=== PATIENT | female | born 1955 | race Caucasian/White ===

== ENCOUNTER 2021-01-12 21:53 | Emergency (ER) | payer OTHER, SELFPAY ==
[2021-01-12 22:09] VITALS: BP 194/84; PULSE 85; RESP 16; TEMP 37.2; O2SAT 96; BMI 23.0
--- NOTE | 2021-01-12 23:21 | DI.CT.S_ITS ---
PROCEDURE: CT FACIAL BONES WO CON INDICATIONS: fall with head and face injury TECHNIQUE: Noncontrast 2.5 mm thick axial images acquired from the mandible through the frontal sinuses, with coronal and sagittal reformatting. For radiation dose reduction, the following was used: automated exposure control, adjustment of mA and/or kV according to patient size. COMPARISON: None. FINDINGS: Image quality: Excellent. Bones and teeth: Orbital mcmanus are intact. Sinus mcmanus show no fracture or deformity. Nasal bones and septum are intact. Visualized portions of the mandible demonstrate no fractures or subluxation. Zygomatic arches are intact. Pterygoid plates are intact. Visualized portions of the skull base and auditory canals are intact. Osteoarthritic degenerative changes noted in the right temporomandibular joint. Degenerative disc disease and facet arthropathy noted in the visualized cervical spine. Sinuses: Paranasal sinuses are aerated, without fluid levels, mucosal thickening, or mucoceles. Mastoid air cells are aerated. Soft tissues: Soft tissue swelling noted in the right lower face. Subcutaneous hematoma noted in the right malar eminence. No enlarged lymph nodes. No soft tissue lacerations or debris. Vascular: Visualized vascular structures appear normal in the absence of contrast. Bony vascular foramina and canals are intact. IMPRESSION: No fracture. Dictated by: Flavia Rubio MD, PhD on 01/13/2021 at 7:35 Approved by: Flavia Rubio MD, PhD on 01/13/2021 at 7:39
--- NOTE | 2021-01-12 23:21 | DI.CT.S_ITS ---
PROCEDURE: CT HEAD/BRAIN WO CON INDICATIONS: fall with memory loss and injury TECHNIQUE: Noncontrast 4.5 mm thick angled axial sections acquired from the foramen magnum to the vertex, with coronal and sagittal reformats. For radiation dose reduction, the following was used: automated exposure control, adjustment of mA and/or kV according to patient size. COMPARISON: None. FINDINGS: Image quality: Excellent. CSF spaces: Basal cisterns are patent. No extra-axial fluid collections. Ventricles are normal in size and shape. Brain: No midline shift. No intracranial masses or hemorrhage. Girard-white matter interface is normal. Skull and face: Calvarium and visualized facial bones are intact, without suspicious lesions. Sinuses: Visualized sinuses and mastoids are clear. IMPRESSION: No acute intracranial disease process. Dictated by: Flavia Rubio MD, PhD on 01/13/2021 at 7:13 Approved by: Flavia Rubio MD, PhD on 01/13/2021 at 7:14
--- NOTE | 2021-01-12 23:28 | DI.RAD.S_ITS ---
PROCEDURE: XR HAND LT MIN 3V INDICATIONS: fall with hand pain TECHNIQUE: 3 views of the hand(s) acquired. COMPARISON: None. FINDINGS: Bones: No fractures or dislocations. Carpal bones are normally aligned. No suspicious bony lesions. Osteoarthritic changes are present, severe at the 1st carpometacarpal joint, udlv-po-szachdon in multiple interphalangeal joints. Small ossicles are noted adjacent to the 3rd distal interphalangeal joint and the 4th proximal interphalangeal joint, indeterminate. Soft tissues: No suspicious soft tissue calcifications. Soft tissue swelling. IMPRESSION: 1. No acute osseous abnormality. If clinical symptoms persist or clinical suspicion for pathology is high, a repeat examination in 7-10 days, or advanced imaging such as CT or MRI is suggested for further evaluation. 2. Small ossicles adjacent to the 3rd distal interphalangeal joint and the 4th proximal interphalangeal joint are indeterminate. 3. Severe degenerative joint disease. No significant discrepancy with the night filler radiology preliminary report. Dictated by: Candelaria Ramos M.D. on 01/13/2021 at 8:42 Approved by: Candelaria Ramos M.D. on 01/13/2021 at 8:47
--- NOTE | 2021-01-13 00:17 | ED_ITS ---
HPI - Head Injury General Chief complaint: Head Injury Stated complaint: Fell and hit head, memory loss Time Seen by Provider: 01/12/21 23:21 Source: patient Mode of arrival: Ambulatory Limitations: no limitations History of Present Illness HPI Narrative: 65F nonsmoker with noncontributory medical history presents with an accidental head injury just prior to arrival. She was playing in a skate park with her granddaughter and slipped, striking her face on the ground. It is unclear she suffered any loss of consciousness but she definitely has a loss of recall of about 30 minutes after the event. She denies any ongoing blurred vision, nausea, vomiting. She has mild headache and some right-sided face pain. She denies any loose or numb teeth nor any malocclusion. She is able to breathe through both nostrils without any difficulty. She has some pain in the palm of her left hand and ring finger for left hand. She takes no blood thinners and denies use of alcohol or street drugs Related Data Previous Rx's Medication Instructions Recorded ondansetron 4 mg PO TID-QID PRN #10 tab 01/13/21 Allergies Allergy/AdvReac Type Severity Reaction Status Date / Time No Known Drug Allergies Allergy Verified 01/12/21 22:14 Review of Systems Constitutional Constitutional: Denies chills, Denies fatigue, Denies fever(s), Denies frequent falls, Denies lethargy and Denies weakness Eyes Eyes: Denies change in vision, Denies eye discharge, Denies irritation and Denies loss of vision ENT Ears, Nose, Mouth, and Throat: Denies change in voice, Denies dizziness, Denies neck pain, Denies sore throat and Denies throat swelling Cardiovascular Cardiovascular: Denies chest pain, Denies irregular heart rhythm, Denies lightheadedness, Denies palpitations, Denies dyspnea, Denies dyspnea on exertion and Denies orthopnea Respiratory Respiratory: Denies cough, Denies dyspnea, Denies dyspnea on exertion and Denies wheezing Gastrointestinal Gastrointestinal: Denies abdominal pain, Denies change in bowel habits, Denies diarrhea, Denies nausea and Denies vomiting Musculoskeletal Musculoskeletal: Denies neck pain and Denies numbness Integumentary/Breasts Skin/Breast: Denies pruritus, Denies erythema, Denies rash and Denies wounds Neurologic Neurologic: Denies behavioral changes, Denies confusion, Denies dizziness, Denies frequent falls, Denies loss of vision, Reports memory loss, Denies numbness and Denies weakness Psychiatric Psychiatric: Denies anxiety, Denies behavioral changes, Denies confusion, Denies depression, Reports memory loss, Denies homicidal ideation and Denies suicidal ideation Endocrine Endocrine: Denies fatigue, Denies flushing and Denies palpitations Hematologic/Lymphatic Hematologic/Lymphatic: Denies easy bruising Allergic/Immunologic Allergic/Immunologic: Denies urticaria, Denies throat swelling and Denies wheezing Patient History Social History Smoking Status: Never smoker Smoking Status: Never smoker alcohol intake frequency: 0-2 drinks per day Alcohol type: wine Substance Use Type: does not use Exam Narrative Exam Narrative: GENERAL: [65] year old patient appears younger than stated age. Well-developed patient, in mild distress. GCS 15 HEAD: Notable swelling over right cheek with ecchymosis, no other laceration, contusion, no evidence of depressed skull fracture. EYES: Pupils equal round and reactive. No hyphema. Extraocular motions intact. No scleral icterus. No injection or drainage. ENT: Nose without bleeding, purulent drainage. No nasal septal hematoma or hemotympanum Throat without erythema, tonsillar hypertrophy or exudate. Airway patent. NECK: Trachea midline. Non tender CARDIOVASCULAR: Regular rate and rhythm without murmurs, gallops, or rubs. RESPIRATORY: Clear to auscultation. Breath sounds equal bilaterally. No wheezes, rales, or rhonchi. GASTROINTESTINAL: Abdomen soft, non-tender, nondistended. EXTREMITIES: No edema or joint tenderness. BACK: Nontender without deformity or crepitance. No flank tenderness. NEURO: AOx3. SKIN: No rash or erythema of visible areas Initial Vital Signs Initial Vital Signs: Vital Signs Temperature 98.9 F 01/12/21 22:09 Pulse Rate 85 01/12/21 22:09 Respiratory Rate 16 01/12/21 22:09 Blood Pressure 194/84 H 01/12/21 22:09 Pulse Oximetry 96 01/12/21 22:09 Course Orders Ordered: ED Orders 01/12/21 23:21 CT facial bones wo con Stat CT head/brain wo con Stat 01/12/21 23:28 XR hand LT min 3V Stat Vital Signs Vital signs: Vital Signs - 8 hr 01/12/21 22:09 01/13/21 00:56 Temperature 98.9 F Pulse Rate 85 80 Respiratory Rate 16 16 Blood Pressure 194/84 H 144/79 H Pulse Oximetry 96 97 MDM - Head Injury Imaging Data CT scan - head: Attestation: I personally reviewed and interpreted this imaging study as follows: My Impression: No fracture or bleed Radiologist's Impression: No intracranial hemorrhage or mass effect Facial Bones: Attestation: I personally reviewed and interpreted this imaging study as follows: Extremity x-ray #1: Radiologist's Impression: No fx Discharge Plan Departure Patient Disposition: Home Clinical Impression: Closed head injury Qualifiers: Encounter type: initial encounter Qualified Code(s): S09.90XA - Unspecified injury of head, initial encounter Contusion of face Qualifiers: Encounter type: initial encounter Qualified Code(s): S00.83XA - Contusion of other part of head, initial encounter Instructions: DI for Closed Head Injury Activity Restrictions/Additional Instructions: *You have been diagnosed with [concussion and facial contusion. CT scan shows no bleeding in the brain and no fractures of your face.] *What to do: *Please continue to take your regular medications as directed. [ ] New medication prescriptions sent to your pharmacy: [ ] [ ] New medication written as a paper prescription [x ] No new medications given You have a slight concussion and will likely have a mild headache and some nausea for a few days. Avoiding highly stimulating activities and even TV or computers may be helpful in minimizing your symptoms. Avoid activities that will put you at risk for another head injury for at least a week. You can take tylenol or motrin for headache or the prescription provided for nausea/vomiting. Return for worsening or persistent symptoms *Please follow up with your primary care provider in 2-3 days, call for an appointment. Let them know you were seen in the Emergency Department and that we ask that you be seen in follow up. We will electronically transmit a record of today's note if your PCP is in our system *If you do not have a primary care provider please contact the [facility] Resource line at [phone]. They will ask some questions about your medical history and help get you set up with a doctor in the community. *Return to Emergency Department if you should have any new, worsening or concerning symptoms, such as [fever greater than 101 F, shaking chills, worsening pain, persistent vomiting or other bothersome symptoms] Prescriptions: New ondansetron 4 mg tablet,disintegrating 4 mg PO TID-QID PRN (Reason: nausea and vomiting) Qty: 10 RF: 0
[2021-01-13 00:56] VITALS: BP 144/79; PULSE 80; RESP 16; O2SAT 97
== END 2021-01-13 01:15 | disposition home or self-care (01) ==
PROVIDERS: Emergency Provider Emergency Medicine
DX: S09.90XA Unspecified injury of head, initial encounter (principal); S00.83XA Contusion of other part of head, initial encounter; R51.9 Headache, unspecified; W19.XXXA Unspecified fall, initial encounter
CPT/HCPCS: 70450; 70486; 73130; 99284